=== PATIENT | male | born 1960 | race Caucasian/White ===

== ENCOUNTER 2024-08-12 09:04 | Emergency (ER) | payer BC, OTHER ==
[~2024-08-12] VITALS: Ht 195.6 cm; Wt 114.0 kg
[~2024-08-12 09:04] MED LIST: FEBU40TA; IBUP-2030
[2024-08-12 09:24] VITALS: TEMP 36.8; O2SAT 98
[2024-08-12] MEDS: PREDNISONE 20MG TABLET PO ONE (13:16)
[2024-08-12] MEDS: INDOMETHACIN 25MG CAPSULE PO ONE (13:16)
[2024-08-12 13:54] LABS: BASOPHILS % 0.7 % (0.0-2.0); EOSINOPHILS % 7.7 % (0.0-5.0); HEMATOCRIT. 47.1 % (42.0-52.0); LYMPHOCYTES % 24.2 % (20.0-50.0); MEAN CORPUSCULAR HEMOGLOBIN 31.1 pg (28.0-32.0); MEAN CORPUSCULAR VOLUME 91.3 fL (80.0-94.0); MEAN PLATELET VOLUME 10.7 fl (7.4-10.4); MONOCYTES % 6.3 % (2.0-8.0); NEUTROPHILS % 61.1 % (40.0-76.0); PLATELET 77 x1000/uL (130-400); RED BLOOD CELL COUNT 5.15 mill/uL (4.7-6.1); RED CELL DISTRIBUTION WIDTH 13.9 % (11.6-14.6); WHITE BLOOD COUNT 10.2 x1000/uL (4.5-11.0)
[2024-08-12 14:05] LABS: CHLORIDE 108 mEq/L (98-107); POTASSIUM 4.5 mEq/L (3.5-5.1); SODIUM 141 mEq/L (136-145)
[2024-08-12 14:06] LABS: CALCIUM 9.6 mg/dL (8.7-10.4); CARBON DIOXIDE 26 mEq/L (21-32); PROTHROMBIN TIME 10.7 sec (9.6-11.0)
[2024-08-12 14:11] LABS: GLUCOSE 118 mg/dL (70-105); UREA NITROGEN BLOOD 13 mg/dL (9-23)
[2024-08-12 14:13] LABS: ALANINE AMINOTRANSFERASE 19 IU/L (10-49); ALBUMIN 4.6 g/dL (3.2-4.8); ASPARTATE AMINOTRANSFERASE 20 IU/L (<34); BILIRUBIN DIRECT 0.2 mg/dL (<=3.0); BILIRUBIN TOTAL 0.8 mg/dL (0.1-1.0)
[2024-08-12 14:14] LABS: PROTEIN TOTAL 7.4 g/dL (6.0-8.3)
[2024-08-12] MEDS ORDERED: PRED10TA MT (14:59)
[2024-08-12] MEDS ORDERED: INDO50CA98 MT (14:59)
[2024-08-12 15:26] VITALS: BP 147/93; PULSE 58; RESP 18; O2SAT 100
== END 2024-08-12 15:28 | disposition home or self-care (01) ==
LOC: ER 09:04
DX: M10.062 Idiopathic gout, left knee (principal); I10 Essential (primary) hypertension; M25.562 Pain in left knee; Z79.899 Other long term (current) drug therapy
CPT/HCPCS: 99284; 93971; 80076; 80048; 85025; 85610; 36415; 73562; J7512